=== PATIENT | female | born 1960 | race Caucasian/White ===

== ENCOUNTER 2018-03-30 13:17 | Emergency (ER) | payer SELFPAY ==
[~2018-03-30] VITALS: Ht 170.2 cm; Wt 73.0 kg
[2018-03-30] MEDS ORDERED: ONDANSETRON ODT 4 MG ONE (13:40)
[2018-03-30] MEDS ORDERED: ONDANSETRON ODT 4 MG PO ONE (14:00)
[2018-03-30 14:20] VITALS: BP 114/77
== END 2018-03-30 15:11 | disposition home or self-care (01) ==
LOC: ED 15:05
DX: L50.0 Allergic urticaria (principal); F17.200 Nicotine dependence, unspecified, uncomplicated
CPT/HCPCS: 99283; J7512; Q0162